=== PATIENT | female | born 1970 | race Caucasian/White ===

== ENCOUNTER 2017-03-04 06:48 | Day surgery (SDC) | payer BC ==
[~2017-03-04 06:48] MED LIST: Buffered Lidocaine 0.9% SYRIN* 5 ML/SYR SYRINGE INTRADERM ONE; Dexamethasone IV* 4 MG/ML 1 ML (4 MG) IV SLOW PU ONE; Famotidine IV* 10 MG/ML 2 ML (20 mg) IV ONE
[2017-03-04] MEDS ORDERED: Buffered Lidocaine 0.9% SYRIN* 5 ML/SYR SYRINGE ONE (06:59)
[2017-03-04] MEDS ORDERED: Famotidine IV* 10 MG/ML 2 ML (20 mg) ONE (06:59)
[2017-03-04] MEDS ORDERED: Dexamethasone IV* 4 MG/ML 1 ML (4 MG) ONE (06:59)
[2017-03-04] MEDS ORDERED: ceFAZolin 2 GM PREMIX (*) 2 GM/50 ML BAG IVPB ONE (06:59)
[2017-03-04] MEDS ORDERED: Propofol* 10 MG/ML 20 ML BTL IV PUSH ONE (08:08)
[2017-03-04] MEDS ORDERED: Ketorolac INJ* 30 MG/ML 1 ML VIAL ONE (08:08)
[2017-03-04] MEDS ORDERED: fentaNYL* 50 MCG/ML 2 ML VIAL (100 MCG VIAL) ONE (08:08)
[2017-03-04] MEDS ORDERED: Ondansetron INJ* 2 MG/ML VIAL ONE (08:08)
[2017-03-04] MEDS ORDERED: Midazolam* 1 MG/ML 5 ML VIAL (5 MG) ONE (08:08)
[2017-03-04] MEDS ORDERED: Bupivacaine 0.25% SDV* 30 ML ONE (08:16)
[2017-03-04] MEDS ORDERED: Lidocaine 1% INJ* 10 MG/ML 30 ML SDV ONE (08:16)
[2017-03-04] MEDS ORDERED: Ondansetron INJ* 2 MG/ML VIAL IV PRN (08:21)
[2017-03-04] MEDS ORDERED: DiMENhydriNATE IV* 50 MG/ML VIAL IV PUSH PRN (08:21)
[2017-03-04] MEDS ORDERED: oxyCODONE/Acetamin 5/325 MG* TAB PO PRN (08:21)
[2017-03-04 09:42] VITALS: BP 126/85
--- NOTE | 2017-03-07 01:11 | OP ---
DATE OF OPERATION: 03/04/17 - [facility] DATE OF : 72 SURGEON: Rory Granado MD. FLIGHT TEST SUPERVISOR: NAGA Peters. A physician assistant research scientist was required for the length of the procedure for retraction and setup purposes. ANESTHESIOLOGIST: Dr. Harris. ANESTHESIA: General sedation, local anesthesia with 10 cc of a 1:1 ratio of lidocaine 0.25% with epinephrine and Marcaine without epinephrine 0.5%. PRE-OP DIAGNOSIS: Right carpal tunnel syndrome. POST-OP DIAGNOSIS: Right carpal tunnel syndrome. OPERATIVE PROCEDURE: Right open carpal tunnel release. ANTIBIOTICS: Ancef 2 g IV. IV FLUIDS: 850 cc of normal saline. TOURNIQUET TIME: 15 minutes at 250 mmHg. ESTIMATED BLOOD LOSS: Minimal. COMPLICATIONS: None. SPECIMENS: None. IMPLANTS: None. 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 The patient described numbness and tingling in multiple fingers but principally in the index and middle finger, right hand. She had had it for many years, although it has become less bothersome in the left hand. The patient experienced some numbness and tingling daily, although it has consistently for many years been the worst when she blow dries her hair in the morning. She also has had the symptoms at night. The patient responded insufficiently to nonoperative management including nighttime wrist bracing. The patient opted for surgical management. I discussed preoperatively risks and potential complications of procedure, including bleeding, infection, nerve or blood vessel injury, recurrence of symptoms. DESCRIPTION OF PROCEDURE: Preoperative written consent was obtained in preoperative holding. Operative extremity was marked in preoperative holding. The patient was taken back to the operating room and kept on the stretcher. Some general sedation was applied. A hand table was attached to the stretcher. A mini time-out was performed. I cleaned the patient's distal right forearm and wrist with alcohol swabs. I injected 10 cc of local anesthetic, 6 cc, 6 cm proximal to the flexor wrist skin crease between the FCR and palmaris. I then injected 2 cc into the carpal tunnel and 2 cc into the distal forearm fascia and the subcutaneous tissue overlying it. The right upper extremity was prepped with iodine. The right upper extremity was draped. Surgical time-out was performed. Tourniquet was elevated to 250 mmHg after an Esmarch had been applied. A skin incision approximately 2.5 cm, longitudinal, overlying the carpal tunnel was made. I dissected through the subcutaneous tissue with a deep knife and then spreading dissection using my Ragnell retractors. I dissected down to some longitudinal fascia, the distal most extent of the forearm fascia; this was divided. I next encountered the transverse carpal ligament. A self retractor was placed. Valentina or Ragnell retractors were placed distal and later proximal to aid in exposure. The transverse carpal ligament was incised with a deep blade. I cleared off the deepened superficial surface of that ligament more distally. I then released the ligament further distally using scissors. I then changed my position, spread proximally both deep and superficial to the transverse carpal ligament and using the scissors, cut more proximally. Using a freer, I confirmed a complete release of transverse carpal ligament into the brachial fascia. The transverse carpal ligament cut ends had retracted nicely. No motor branches of the median nerve were encountered. There was not a significant amount of fat distally, but I clearly had cut the transverse carpal ligament towards its distal end, using appropriate landmarks. Irrigation improved closure of the skin with horizontal mattress and simple stitches using nylon 4.0 suture. Xeroform, 4x4s, bulky dressing with sterile Webril followed by Coban. The tourniquet was next deflated. The patient was brought to the PACU. DISPOSITION: The patient was given wound care instructions. She will maintain this dressing for 3 days postoperative. She will take Percocet as needed for pain control. 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 The patient will follow up with me 10 to 14 days postoperatively for removal of stitches. [id number]/[facility] #: [id number] SJ
== END 2017-03-04 09:53 | disposition home or self-care (01) ==
LOC: OR 06:48
PROVIDERS: ATTEND Orthopaedic Surgery
DX: G56.01 Carpal tunnel syndrome, right upper limb (principal); I10 Essential (primary) hypertension; M77.12 Lateral epicondylitis, left elbow; M77.11 Lateral epicondylitis, right elbow; G43.909 Migraine, unspecified, not intractable, without status migrainosus; Z88.5 Allergy status to narcotic agent
CPT/HCPCS: 81025; J0690; J1100; J1885; J2250; J2405; J2704; J3010

== ENCOUNTER 2017-11-29 09:01 | Emergency (ER) | payer BC ==
--- OUTSIDE RECORDS SUMMARY | 2017-11-29 09:07 | XMS REPORT ---
:1970 External Reference #:[id number] Author Organization [facility] Address [address] [place] [address] [place] [address] Phone [phone] Care Team Providers Name Role Phone Jackeline Pedraza MD Primary Care Physician Unavailable Payers Type Date Identification Numbers Payment Provider Subscriber Commercial Policy Number: [id number] BS Facets Jackeline Monae PayID: [id number] [address] [address] [place] [address] Problems Date Description Provider Status Onset: 09/29/2017 Derangement of knee Rory Granado MD Active Onset: 09/29/2017 Sprain of medial collateral ligament Rory Granado MD Active of left knee, subs Family History Date Family Member(s) Problem(s) Comments General Diabetes General Heart Disease General Hypertension General Stroke General Cancer Social History Type Date Description Comments Lives With Work Status Currently Working Smoking Patient has never smoked Allergies, Adverse Reactions, Alerts Date Description Reaction Status Severity Comments 05/12/2016 Codeine active 05/12/2016 Hydrocodone active Medications Medication Date Status Form Strength Qnty SIG Indications Ordering Provider Montelukast / Active Tablets 10mg 1 by Unknown Sodium 0000 mouth every day Levocetirizine / Active Tablets 5mg 1 by Unknown Dihydrochloride 0000 mouth every day / Active Capsules 27-0.8-250 Unknown Multivitamin Plus 0000 mg Dha Verapamil HCL ER / Active Caps ER 100mg Take 1 Unknown 0000 24HR Capsule By Mouth Every Day Rizatriptan / Active Tablets 10mg Jones, Benzoate 0000 Dispers Ivonne A, N.P. Oxycodone-Acetami 03/04/ Hx Tablets 5-325mg 40tabs 1-2 tabs Rory lugo 2017 - by mouth F 05/14/ every Angelica Granado 4-6 MD hours as needed for pain Sumatriptan / Hx Tablets 100mg prn Unknown Succinate - 2017 Labetalol HCL / Hx Tablets 100mg take one Unknown 0000 - tablet 11/28/ by mouth 2017 twice a day Gabapentin / Hx Capsules 300mg Unknown - 2017 Medications Administered in Office Medication Date Status Form Strength Qnty SIG Indications Ordering Provider Depomedrol 40MG 09/29/ Administered Injection Caryl 2018 NAGA Daly Dexamethasone 09/29/ Administered Injection Rory Vail 2016 Luis Felipe Granado, 1 MG No Injection 09/01/ Administered Injection Rory Casey 2016 MD Vannesa Depomedrol 40MG 07/06/ Administered Injection Rory Casey 2016 MD Vannesa Vital Signs Date Vital Result Comment 11/29/2017 Height 63 inches 5'3" Weight 172.00 lb Heart Rate 81 /min Respiratory Rate 17 /min Pain Level 6 BMI (Body Mass Index) 30.5 kg/m2 09/29/2017 Heart Rate 87 /min BP Systolic 110 mmHg BP Diastolic 60 mmHg Respiratory Rate 16 /min Body Temperature 99.1 F Pain Level 4 04/14/2017 Respiratory Rate 20 /min Body Temperature 97.5 F Pain Level 0 03/21/2017 Height 63 inches 5'3" Weight 174.00 lb Respiratory Rate 14 /min Body Temperature 99.2 F Pain Level 0 BMI (Body Mass Index) 30.8 kg/m2 03/14/2017 Height 63 inches 5'3" Weight 174.00 lb Heart Rate 76 /min Respiratory Rate 14 /min Body Temperature 98.3 F Pain Level 0 BMI (Body Mass Index) 30.8 kg/m2 02/08/2017 Height 63 inches 5'3" Weight 174.00 lb BP Systolic 130 mmHg BP Diastolic 76 mmHg Respiratory Rate 14 /min Body Temperature 98.8 F Pain Level 3 BMI (Body Mass Index) 30.8 kg/m2 12/28/2016 Height 63 inches 5'3" Weight 174.00 lb BP Systolic 132 mmHg BP Diastolic 77 mmHg Respiratory Rate 15 /min Pain Level 3 BMI (Body Mass Index) 30.8 kg/m2 11/11/2016 Height 63 inches 5'3" Weight 170.00 lb Heart Rate 77 /min Respiratory Rate 15 /min Pain Level 2 BMI (Body Mass Index) 30.1 kg/m2 09/29/2016 Height 63 inches 5'3" Weight 170.00 lb Respiratory Rate 16 /min Body Temperature 98.2 F Pain Level 4 BMI (Body Mass Index) 30.1 kg/m2 09/01/2016 Height 63 inches 5'3" Weight 170.00 lb BP Systolic 126 mmHg BP Diastolic 83 mmHg Respiratory Rate 16 /min Pain Level 4 BMI (Body Mass Index) 30.1 kg/m2 07/06/2016 Height 63 inches 5'3" Weight 170.00 lb Heart Rate 100 /min BP Systolic 115 mmHg BP Diastolic 80 mmHg Respiratory Rate 21 /min Pain Level 0 BMI (Body Mass Index) 30.1 kg/m2 06/08/2016 Height 63 inches 5'3" Weight 170.00 lb Heart Rate 67 /min BP Systolic 130 mmHg BP Diastolic 85 mmHg Respiratory Rate 16 /min Pain Level 2 BMI (Body Mass Index) 30.1 kg/m2 05/12/2016 Height 63 inches 5'3" Weight 170.00 lb Pain Level 4 BMI (Body Mass Index) 30.1 kg/m2 Results Description No Information Procedures Date CPT Code Description Status 09/29/201734908 Inject/Drain Joint/Bursa Major W/O US Completed 09/29/201777043 Inject/Drain Joint/Bursa Major W/O US Completed 03/04/2017 77322 Carpal Tunnel Release Completed 03/04/2017 89589 Carpal Tunnel Release Completed 09/29/201669350 Injection Single Tendon Origin/Insertion Completed 09/01/201691291 Injection Single Tendon Origin/Insertion Completed 07/06/201696198 Inject/Drain Joint/Bursa Major W/O US Completed Encounters Type Date Location Provider CPT E/M Dx Office Visit 11/29/2017 [facility], 68695 S83.412D 8:30a Of [facility] SORIANO M17.12 M22.2x2 Office Visit 02/08/2017 3:15p [facility] 32291 G56.23 Ike SORIANO M77.11 G56.01 Office Visit 12/28/2016 2:00p [facility] 53765 M77.12 Ike SORIANO G56.23 G56.01 M77.11 Office Visit 11/11/2016 3:30p [facility], 16255 M77.12 Ike SORIANO G56.23 Office Visit 09/29/2016 3:30p [facility], 16788 M77.12 Ike SORIANO G56.23 R20.0 Office Visit 09/01/2016 3:30p [facility], 70113 M77.12 Ike SORIANO S83.412D M25.562 Office Visit 07/06/2016 3:00p [facility] Casey 23450 S83.412D Of Ike Granado MD M17.12 M77.12 Office Visit 06/08/2016 10:15a [facility] 46528 S83.412D Of Ike Granado MD Office Visit 05/12/2016 1:00p [facility] 16669 M25.562 Of Ike Granado MD Plan of Care Future Appointment(s):01/30/2018 1:00 pm - Rory Granado MD at [facility]11/29/2017 - Rory Granado, MDS83.412D Sprain of medial collateral ligament of left knee, subsM17.12 Unilateral primary osteoarthritis, left kneeM22.2x2 Patellofemoral disorders, left kneeNew Therapy: Physical TherapyFollow up:Follow up: 2 months
--- NOTE | 2017-11-29 09:51 | UC ---
Abdominal Pain Female HPI - HPI Summary HPI Summary: 47 yo female presents with RUQ pain radiating to her right mid back since this morning. She tells me that for the last 10 years she has had issues with her gallbladder and pain in this area. Has had two HIDA scans in the past which were both "borderline", but the surgeon at the time did not want to do surgery. Since that time, once or twice a month, she will have intermittent pain in this area - sometimes after eating, but sometimes not. Last night she admits to having potato chips. 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 This has persisted for the last 2 hours, prompting her arrival to . She came today because she said her pain has never lasted this long and she also felt nauseous. This morning she did not eat breakfast, but took her daily vitamins with a sip of water. Denies fever, chills, SOB, chest pain, vomiting, or diarrhea. - History of Current Complaint Chief Complaint: UCAbdominalPain Stated Complaint: SIDE AND BACK PAIN Hx Obtained From: Patient Hx Last Menstrual Period: 10/30/17 Onset/Duration: Sudden Onset Severity Initially: Severe Severity Currently: Severe Pain Intensity: 7 Pain Scale Used: 0-10 Numeric Location: Discrete At: RUQ Allergies/Adverse Reactions: Allergies Allergy/AdvReac Type Severity Reaction Status Date / Time acetaminophen [From Vicodin] Allergy Hives Verified 11/29/17 09:13 Adhesive Tape Allergy Rash Verified 10/03/17 13:42 codeine Allergy Hives Verified 11/29/17 09:14 hydrocodone [From Vicodin] Allergy Hives Verified 11/29/17 09:13 NSAIDS (Non-Steroidal Allergy Hives Verified 11/29/17 09:14 Anti-Inflamma PEANUTS AND ALMONDS Allergy Anaphylatic Uncoded 10/03/17 13:42 Shock Home Medications: Home Medications Rizatriptan Benzoate [Rizatriptan] 10 mg PO DAILY PRN 11/29/17 [History Confirmed 11/29/17] Verapamil HCl [Verapamil ER Pm] 100 mg PO DAILY 11/29/17 [History Confirmed ] PMH/Surg Hx/FS Hx/Imm Hx Cardiovascular History: Hypertension - Surgical History Surgical History: Yes Surgery Procedure, Year, and Place: LOWER BACK FUSION 1991. RIGHT KNEE SURGERY LATERAL RELEASE 2008. LEFT SHOULDER ROTATOR CUFF 2009. RECONSTRUCTIVE ACL SURGERY LEFT KNEE 2011. LEFT SHOULDER IMPINGEMENT REPAIR 2014. CARPAL TUNNEL RIGHT HAND 02/2017 - Family History Known Family History: Positive: None - Social History Occupation: Employed Full-time Lives: With Family Alcohol Use: Occasionally Alcohol Amount: 2-3 DRINKS A MONTH Substance Use Type: None Smoking Status (MU): Never Smoked Tobacco Have You Smoked in the Last Year: No Review of Systems Constitutional: Negative Skin: Negative Respiratory: Negative Cardiovascular: Negative Gastrointestinal: Abdominal Pain, Nausea Genitourinary: Negative Neurovascular: Negative Neurological: Negative Psychological: Negative All Other Systems Reviewed And Are Negative: Yes Physical Exam - Summary Physical Exam Summary: GENERAL: NAD. WDWN. No pain distress. SKIN: No rashes, sores, lesions, or open wounds. NECK: Supple. Nontender. No lymphadenopathy. CHEST: CTAB. No r/r/w. No accessory muscle use. Breathing comfortably and in no distress. CV: RRR. Without m/r/g. Pulses intact. Brisk cap refill. ABDOMEN: Moderate TTP RUQ. Graff sign weakly positive. Soft. No distention or guarding. No CVA tenderness. Bowel sounds present NEURO: Alert. CN II-XII grossly intact. PSYCH: Age appropriate behavior. Triage Information Reviewed: Yes Vital Signs: Initial Vital Signs Temp 98 F 11/29/17 09:10 Pulse 88 11/29/17 09:10 Resp 16 11/29/17 09:10 BP 155/107 11/29/17 09:10 Pulse Ox 99 11/29/17 09:10 Laboratory Tests 11/29/17 09:36 POC Urine Color Dark yellow POC Urine Clarity Slightly cloudy POC Urine pH 7.0 POC Ur Specif [place] 1.020 POC Urine Protein Trace A POC Ur Glucose (UA) Negative POC Urine Ketones Negative POC Urine Blood Negative POC Urine Nitrite Negative POC Urine Bilirubin Negative POC Urine Urobilinogen 0.2 POC U Leukocyte Esteras Negative Vital Signs Reviewed: Yes Abd Pain Female Course/Dx - Course Course Of Treatment: EKG NSR [address] changes and unchanged from EKG [address] Arreaga. US: IMPRESSION: NO ACUTE SONOGRAPHIC PATHOLOGY OF THE VISUALIZED PORTION OF THE ABDOMEN. I suspect her pain is related to her gallbladder, as she has had issue with this in the past and "borderline" HIDA scans - per pt. Therefore, I will refer her to general surgery for further evaluation and possible repeat HIDA scan. Her pain improved with time and nausea improved with Zofran in the clinical course - will be dc'd with an rx for this. Go to ED if symptoms persist or worsen. Pt agreeable with plan - Differential Dx/Diagnosis Provider Diagnoses: RUQ pain Discharge - Sign-Out/Discharge Documenting (check all that apply): Patient Departure - Discharge Plan Condition: Stable Disposition: HOME Prescriptions: Ondansetron ODT TAB* [Zofran 4 MG Odt TAB*] 4 mg PO Q8H PRN #12 tab.odt PRN Reason: Nausea Patient Education Materials: Biliary Colic (ED) Referrals: Jackeline Pedraza MD [Primary Care Provider] - Daniel Bowie MD [Medical Doctor] - As Soon As Possible Additional Instructions: If you develop a fever, shortness of breath, chest pain, new or worsening symptoms - please call your PCP or go to the ED. Your blood pressure was high at todays visit. Please see your primary provider within 4 weeks for recheck and re-evaluation. 1) Please schedule a follow visit with General Surgery for further evaluation - Billing Disposition and Condition Condition: STABLE Disposition: Home
[2017-11-29] MEDS ORDERED: Ondansetron ODT TAB* 4 MG PO ONE (11:44)
--- NOTE | 2017-11-29 11:57 | RAD ---
HISTORY: RUQ pain. Hx of gallbladder issues COMPARISONS: None TECHNIQUE: Multiple transverse and longitudinal ultrasound images were obtained of the right upper quadrant of the abdomen using grayscale and color Doppler imaging. FINDINGS: LIVER: There is a simple cyst of the right lobe of liver measuring 0.8 cm in size. There is normal hepatopedal flow of the portal vein on Doppler imaging. BILIARY TREE: There is no intrahepatic or extrahepatic biliary dilatation. The common duct measures 0.3 cm. GALLBLADDER: The gallbladder is well-visualized. There is no cholelithiasis, gallbladder wall thickening, pericholecystic fluid, or sonographic Graff sign. PANCREAS: The head of the pancreas is unremarkable. The tail of the pancreas is not well visualized secondary to overlying bowel gas. RIGHT KIDNEY: The right kidney is normal in shape, size, contour, and echogenicity. There is no hydronephrosis or nephrolithiasis. The right kidney measures 10.4 x 4.3 x 4.7 cm. AORTA AND IVC: The aorta and IVC are unremarkable. FLUID: There are no pleural effusions. There is no free fluid within the hepatorenal recess. OTHER FINDINGS: None. IMPRESSION: NO ACUTE SONOGRAPHIC PATHOLOGY OF THE VISUALIZED PORTION OF THE ABDOMEN.
[2017-11-29 12:12] VITALS: BP 134/86
== END 2017-11-29 12:50 | disposition home or self-care (01) ==
LOC: UCEAST 09:01
DX: R10.11 Right upper quadrant pain (principal); R11.0 Nausea; I10 Essential (primary) hypertension; Z88.6 Allergy status to analgesic agent; Z88.5 Allergy status to narcotic agent; Z91.010 Allergy to peanuts; Z91.048 Other nonmedicinal substance allergy status
CPT/HCPCS: 76705; 81003; 93005; 99212; A9270-GY; G0463

== ENCOUNTER 2018-02-22 07:30 | Emergency (ER) | payer BC ==
--- OUTSIDE RECORDS SUMMARY | 2018-02-22 07:35 | XMS REPORT ---
:1970 External Reference #:[id number] Author Organization [facility] Address [address] [place] [address] [place] [address] Phone [phone] Care Team Providers Name Role Phone Jackeline Pedraza MD Primary Care Physician Unavailable Payers Type Date Identification Numbers Payment Provider Subscriber Commercial Policy Number: [id number] BS Facets Jackeline Monae PayID: [id number] [address] [address] [place] [address] Problems Date Description Provider Status Onset: 09/29/2017 Derangement of knee Rory Granado MD Active Onset: 09/29/2017 Sprain of medial collateral ligament Rory Granado MD Active of left knee, subs Family History Date Family Member(s) Problem(s) Comments General Diabetes General Heart Disease General Hypertension General Stroke General Cancer Social History Type Date Description Comments Marital Status Single Occupation Currently Working 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 Work Status Currently Working ETOH Use Drinks Alcoholic Beverages Occasionally Smoking Patient has never smoked Recreational Drug Use Denies Drug Use Daily Caffeine Consumes on average 1 cup of regular coffee per day Exercise Type/Frequency Exercises regularly Allergies, Adverse Reactions, Alerts Date Description Reaction Status Severity Comments 05/12/2016 Codeine active 05/12/2016 Hydrocodone active 12/09/2017 Adhesive active rash Medications Medication Date Status Form Strength Qnty [...] Every Day Rizatriptan / Active Tablets 10mg 1 tab Jones, Benzoate 0000 Dispers daily as Ivonne A, needed N.P. Probiotic Daily / Active Capsules 1 by Unknown 0000 mouth every day Omeprazole / Active Capsules 20mg [address] mouth every day Oxycodone-Acetami 03/04/ Hx Tablets 5-325mg 40tabs 1-2 tabs Rory lugo 2017 - by mouth F 05/14/ every Angelica Granado 4-6 MD hours as needed for pain Sumatriptan / Hx Tablets 100mg prn Unknown Succinate - 2017 Labetalol HCL / Hx Tablets 100mg take one Unknown 0000 - tablet 11/28/ by mouth 2017 twice a day Gabapentin / Hx Capsules 300mg Unknown 0000 - 2017 Medications Administered in Office Medication Date Status Form Strength Qnty SIG Indications Ordering Provider Depomedrol 40MG 09/29/ Administered Injection Rory Casey 2017 MD Vannesa Dexamethasone 09/29/ Administered Injection Rory 2016 Luis Felipe Granado, 1 MG No Injection 09/01/ Administered Injection Rory 2016 MD Vannesa Depomedrol 40MG 07/06/ Administered Injection Rory 2016 MD Vannesa Vital Signs Date Vital Result Comment 01/30/2018 Height 63 inches 5'3" Heart Rate 80 /min BP Systolic 130 mmHg BP Diastolic 82 mmHg Body Temperature 98.5 F Pain Level 0 12/09/2017 Height 63 inches 5'3" Weight 172.00 lb Heart Rate 76 /min BP Systolic 134 mmHg BP Diastolic 82 mmHg Respiratory Rate 16 /min Body Temperature 98.6 F BMI (Body Mass Index) 30.5 kg/m2 11/29/2017 Height 63 inches 5'3" Weight 172.00 [...] Information Procedures Date CPT Code Description Status 09/29/201737179 Inject/Drain Joint/Bursa Major W/O US Completed 09/29/201728447 Inject/Drain Joint/Bursa Major W/O US Completed 03/04/2017 27066 Carpal Tunnel Release Completed 03/04/2017 02556 Carpal Tunnel Release Completed 09/29/2016 Injection Single Tendon Origin/Insertion Completed 09/01/2016 Injection Single Tendon Origin/Insertion Completed 07/06/2016 Inject/Drain Joint/Bursa Major W/O US Completed 01/06/2015 Colonoscopy Completed Encounters Type Date Location Provider CPT E/M Dx Office Visit 12/09/2017 [facility], 49570 R10.11 1:00p Yue SORIANO Office Visit 11/29/2017 [facility] 67438 M17.12 8:30a Ike SORIANO M22.2x2 Office Visit 09/29/2017 8:15a [facility] Casey 50236 S83.412D Of [facility] Granado MD M17.12 Office Visit 02/08/2017 3:15p [facility] 90896 G56.23 Ike SORIANO M77.11 G56.01 Office Visit 12/28/2016 2:00p [facility] 88552 M77.12 Ike SORIANO G56.23 G56.01 M77.11 Office Visit 11/11/2016 3:30p [facility] 98531 M77.12 Ike SORIANO G56.23 Office Visit 09/29/2016 3:30p [facility] 05409 M77.12 Ike SORIANO G56.23 R20.0 Office Visit 09/01/2016 3:30p [facility] 15422 M77.12 Ike SORIANO S83.412D M25.562 Office Visit 07/06/2016 3:00p [facility] Casey 44535 S83.412D Of [facility] Granado MD M17.12 M77.12 Office Visit 06/08/2016 10:15a [facility] Casey 41890 S83.412D Of Ike Granado MD Office Visit 05/12/2016 1:00p [facility] 21118 M25.562 Of Ike Granado MD Plan of Care Future Appointment(s):03/14/2018 11:15 am [facility] Rory Granado, MDM22.2x2 Patellofemoral disorders, left kneeNew Therapy:Physical TherapyFollow up:Follow up: 6 meqbvI28.12 Unilateral primary osteoarthritis, left knee
[2018-02-22] MEDS ORDERED: Nitroglycerin TAB 0.4 MG* 0.4 MG TAB SL ONE (07:47)
[2018-02-22] MEDS ORDERED: Aspirin 81 mg CHEW TAB* 81 MG TAB.CHEW PO ONE (07:47)
[2018-02-22 07:50] VITALS: BP 170/101
--- NOTE | 2018-02-22 07:57 | UC ---
Cardiac HPI - HPI Summary HPI Summary: Onset yesterday of left sided chest pain. Described as a constant dull ache with occasional sharp pains. Today it has started to radiate through to her posterior shoulder. Sometimes the pain makes her catch her breath but she otherwise denies shortness of breath. No nausea. No sweats. Has a strong family history of heart disease. - History of Current Complaint Chief Complaint: UCChestPain Stated Complaint: CHEST PAIN Time Seen by Provider: 02/22/18 07:42 Hx Obtained From: Patient Hx Last Menstrual Period: 02/03/18 Onset/Duration: Gradual Onset, Lasting Days - 1 DAY, Still Present Timing: Constant Initial Severity: Moderate Current Severity: Moderate Pain Intensity: 4 Chest Pain Location: Left Anterior Character: Dull/Aching Aggravating Factor(s): Nothing Alleviating Factor(s): Nothing Associated Signs & Symptoms: Positive: Chest Pain, Anxiety, Back Pain - Allergy/Home Medications Allergies/Adverse Reactions: Allergies Allergy/AdvReac Type Severity Reaction Status Date / Time acetaminophen [From Vicodin] Allergy Hives Verified 02/22/18 07:51 Adhesive Tape Allergy Rash Verified 02/22/18 07:51 codeine Allergy Hives Verified 02/22/18 07:51 hydrocodone [From Vicodin] Allergy Hives Verified 02/22/18 07:51 NSAIDS (Non-Steroidal Allergy Hives Verified 02/22/18 07:51 Anti-Inflamma PEANUTS AND ALMONDS Allergy Anaphylatic Uncoded 02/22/18 07:51 Shock Home Medications: Home Medications Omeprazole 20 mg PO 02/22/18 [History] PMH/Surg Hx/FS Hx/Imm Hx Cardiovascular History: Hypertension GI/ History: Gastroesophageal Reflux Neurological History: Migraine - Surgical History Surgical History: Yes Surgery Procedure, Year, and Place: LOWER BACK FUSION 1991. RIGHT KNEE SURGERY LATERAL RELEASE 2008. LEFT SHOULDER ROTATOR CUFF 2009. RECONSTRUCTIVE ACL SURGERY LEFT KNEE 2011. LEFT SHOULDER IMPINGEMENT REPAIR 2014. CARPAL TUNNEL RIGHT HAND 02/2017 - Family History Known Family History: Positive: Cardiac Disease, Hypertension - Social History Alcohol Use: Occasionally Alcohol Amount: 2-3 DRINKS A MONTH Substance Use Type: None Smoking Status (MU): Never Smoked Tobacco Have You Smoked in the Last Year: No Review of Systems Constitutional: Negative Respiratory: Negative Cardiovascular: Chest Pain Gastrointestinal: Negative Psychological: Anxious All Other Systems Reviewed And Are Negative: Yes Physical Exam Triage Information Reviewed: Yes Appearance: Well-Appearing - BUT ANXIOUS, No Pain Distress, Well-Nourished Vital Signs: Initial Vital Signs Temp 98.0 F 02/22/18 07:47 Pulse 89 02/22/18 07:47 Resp 18 02/22/18 07:47 BP 170/101 02/22/18 07:47 Pulse Ox 96 02/22/18 07:47 Vital Signs Reviewed: Yes Eyes: Positive: Conjunctiva Clear ENT: Positive: Hearing grossly normal Neck: Positive: Supple Respiratory Exam: Normal Cardiovascular Exam: Normal Abdomen Description: Positive: Nontender, Soft Musculoskeletal: Positive: No Edema Neurological: Positive: Alert Psychological: Positive: Normal Response To Family, Age Appropriate Behavior Skin: Negative: rashes Diagnostics - EKG Cardiac Rate: NL - 75 BPM Cardiac Rhythm: Sinus: Normal Ectopy: None Summary of EKG Findings: T WAVE INVERSION III, AVF - Assessment/Plan Course Of Treatment: PT GIVEN 0.4MG NTG, ASA 81MG X4. TO [facility] BY AMBULANCE - Clinical Impression Provider Diagnoses: CHEST PAIN - Physician Notifications Discussed Patient Care With: Kristine Chaudhry - TO [facility] BY AMBULANCE Time Discussed With Above Provider: 07:50 Instructed by Provider To: MD Will See In ED Discharge - Sign-Out/Discharge Documenting (check all that apply): Patient Departure All imaging exams completed and their final reports reviewed: No Studies - Discharge Plan Condition: Stable Disposition: TRANS HIGHER LVL OF CARE FAC Referrals: Jackeline Pedraza MD [Primary Care Provider] - - Billing Disposition and Condition Condition: STABLE Disposition: Trans Higher Lvl of Care Fac
== END 2018-02-22 08:07 | disposition short-term general hospital (02) ==
LOC: UCEAST 07:30
DX: R07.89 Other chest pain (principal); F41.9 Anxiety disorder, unspecified; K21.9 Gastro-esophageal reflux disease without esophagitis; Z88.6 Allergy status to analgesic agent; Z88.5 Allergy status to narcotic agent; Z91.010 Allergy to peanuts; Z91.048 Other nonmedicinal substance allergy status; Z82.49 Family history of ischemic heart disease and other diseases of the circulatory system
CPT/HCPCS: 93005; 99213; A9270-GY; G0463

== ENCOUNTER 2018-02-22 08:25 | Observation (INO) | payer BC ==
--- NOTE | 2018-02-22 08:56 | ED ---
HPI Chest Pain - HPI Summary HPI Summary: Patient is a 47 y/o F received by ambulance from [facility] w/ c/o chest pain. Pain onset last morning at around 1030. Pain is described as constant and dull. Chest pain is at left upper breast and she notes pain radiates to left shoulder. Back pain is reported as well. She reports intermittent episodes of sharp pain at chest and back. Patient reports similar Hx of episodes, patient has had cardiac stress test. She does note that she was lifting 25-30 lbs logs three days ago. In the room, she states chest pain has resolved but notes left shoulder pain is still present. N/V/D, SOB and dizziness are denied. PMHx of HTN and FMHx of OR in 40s. Patient denies fever, chills, CHOUDHURY, ear pain, sore throat, blurred vision, double vision, neck pain, SOB, ABD pain, dysuria, hematuria, blood in the stool, constipation, edema, bruising, rashes, anxiety and depression. On triage, pain is rated 5/10, nothing is noted to aggravate/alleviate Sx, and it is noted patient received 1 nitro and 324 mg ASA at [facility]. Home medications and allergies are reviewed. - History of Current Complaint Chief Complaint: EDChestPainROMI Hx Obtained From: Patient Hx Last Menstrual Period: 02/03/18 Onset/Duration: Started Days Ago - last night, Still Present Timing: Constant Current Severity: Moderate - 5/10 Pain Intensity: 5 Pain Scale Used: 0-10 Numeric - 5/10 Chest Pain Location: Left Anterior Chest Pain Radiates: Yes Chest Pain Radiates To:: Shoulder - left Character: Dull/Aching, Sharp/Stabbing - intermittent, Tightness Aggravating Factor(s): Nothing Alleviating Factor(s): Nothing Associated Signs and Symptoms: Positive: Chest Pain, Back Pain - lower, Other: - POSITIVE: left shoulder pain NEGATIVE: dizziness, fever, chills, CHOUDHURY, ear pain , sore throat, blurred vision, double vision, neck pain, SOB, ABD pain, dysuria , hematuria, blood in the stool, constipation, edema, bruising, rashes, anxiety and depression. Negative: Dizziness, Shortness of Breath, Nausea, Vomiting - Allergy/Home Medications Allergies/Adverse Reactions: Allergies Allergy/AdvReac Type Severity Reaction Status Date / Time Adhesive Tape Allergy Rash Verified 02/22/18 07:51 codeine Allergy Hives Verified 02/22/18 07:51 hydrocodone [From Vicodin] Allergy Hives Verified 02/22/18 07:51 NSAIDS (Non-Steroidal Allergy Hives Verified 02/22/18 07:51 Anti-Inflamma PEANUTS AND ALMONDS Allergy Anaphylatic Uncoded 02/22/18 07:51 Shock PMH/Surg Hx/FS Hx/Imm Hx Endocrine/Hematology History: Denies: Hx Diabetes Cardiovascular History: Reports: Hx Hypertension - ON MEDICATION Denies: Hx Pacemaker/ICD GI History: Reports: Hx Hiatal Hernia, Hx Ulcer - GASTRIC History: Denies: Hx Renal Disease Musculoskeletal History: Reports: Hx Arthritis Sensory History: Reports: Hx Contacts or Glasses - GLASSES Denies: Hx Hearing Aid Opthamlomology History: Reports: Hx Contacts or Glasses - GLASSES Neurological History: Reports: Hx Headaches - MIGRAINES Psychiatric History: Denies: Hx Panic Disorder - Surgical History Surgery Procedure, Year, and Place: LOWER BACK FUSION 1991. RIGHT KNEE SURGERY LATERAL RELEASE 2008. LEFT SHOULDER ROTATOR CUFF 2009. RECONSTRUCTIVE ACL SURGERY LEFT KNEE 2011. LEFT SHOULDER IMPINGEMENT REPAIR 2014. CARPAL TUNNEL RIGHT HAND 02/2017 Hx Anesthesia Reactions: No Infectious Disease History: No Infectious Disease History: Denies: Traveled Outside the [place] in Last 30 Days - Family History Known Family History: Positive: Cardiac Disease - FMHx of OR in 40s , Hypertension - Social History Alcohol Use: Occasionally Alcohol Amount: 2-3 DRINKS A MONTH Substance Use Type: Reports: None Smoking Status (MU): Never Smoked Tobacco Have You Smoked in the Last Year: No Review of Systems Negative: Fever, Chills Positive: Other - NEGATIVE: double vision . Negative: Blurred Vision Negative: Sore Throat, Ear Ache Positive: Chest Pain Negative: Shortness Of Breath Negative: Abdominal Pain, Vomiting, Diarrhea, Nausea Positive: other - NEGATIVE: stool in blood, constipation . Negative: dysuria, hematuria Positive: Other - POSITIVE: left shoulder and back pain NEGATIVE: neck pain . Negative: Edema Negative: Rash, Bruising Neurological: Other - NEGATIVE: dizziness Negative: Headache Negative: Anxious, Depressed All Other Systems Reviewed And Are Negative: No Physical Exam - Summary Physical Exam Summary: Appearance: Alert, conversive, nontoxic appearing Skin: Warm, dry, no mottling, no rashes, no contusions HEENT: EOMI, PERRL, moist mucous membranes Neck: No masses on the neck, supple Respiratory: Clear to auscultation, breath sounds present, no rales, no rhonchi , no wheezes Cardiovascular: RRR, pulses are symmetrical in both lower and upper extremities Abdomen: Soft, non-tender Bowel Sounds: Present Musculoskeletal: No CVA tenderness, no obvious deformity, moving all extremities in a grossly normal manner Neurological: A&Ox3, CN II-XII Intact, moving all extremities symmetrically Psychiatric: Normal affect and mood Triage Information Reviewed: Yes Vital Signs On Initial Exam: Initial Vitals Temp Pulse Resp BP Pulse Ox 98 F 72 12 163/104 98 02/22/18 08:26 02/22/18 08:26 02/22/18 08:26 02/22/18 08:26 02/22/18 08:26 Vital Signs Reviewed: Yes Diagnostics - Vital Signs Vital Signs Temp Pulse Resp BP Pulse Ox 02/22/18 08:26 98 F 72 12 163/104 98 - Laboratory Result Diagrams: 02/23/18 06:04 02/23/18 06:04 Lab Statement: Any lab studies that have been ordered have been reviewed, and results considered in the medical decision making process. - Radiology CXR Radiology Interpretation Completed By: Radiologist Summary of Radiographic Findings: IMPRESSION: No radiographically apparent acute cardiopulmonary abnormality on this single. view portable chest x-ray. This report was reviewed by ED physician. Re-Evaluation - Re-Evaluation First Eval Re-Evaluation Time: 10:10 Comment: Discussed admission with patient, she is agreeable. Chest Pain Course/Dx - Course Course Of Treatment: Patient is a 47 y/o F received by ambulance from [facility] w/ c/ o chest pain. Pain onset last morning at around 1030. Pain is described as constant and dull. Chest pain is at left upper breast and she notes pain radiates to left shoulder. Back pain is reported as well. She reports intermittent episodes of sharp pain at chest and back. Patient reports similar Hx of episodes, patient has had cardiac stress test. She does note that she was lifting 25-30 lbs logs three days ago. In the room, she states chest pain has resolved but notes left shoulder pain is still present. N/V/D, SOB and dizziness are denied. PMHx of HTN and FMHx of OR in 40s. Patient denies fever, chills, CHOUDHURY, ear pain, sore throat, blurred vision, double vision, neck pain, SOB , ABD pain, dysuria, hematuria, blood in the stool, constipation, edema, bruising, rashes, anxiety and depression. Physical exam was unremarkable. Labs showed D-dimer < 200, glucose 115, calcium 8.4, AST 12, TSH 1.49, trop 0. CXR IMPRESSION: No radiographically apparent acute cardiopulmonary abnormality on this single. view portable chest x-ray. EKG from [facility] is noted to have non- specific ST-T changes. Patient's case was discussed with Dr. Gonsales at 1016. Dr. Gonsaels accepts patient for admission. Patient agreeable with admission. Dx of chest pain. - Diagnoses Provider Diagnoses: Chest pain - Provider Notifications Discussed Care Of Patient With: Maru Gonsales Time Discussed With Above Provider: 10:16 Instructed by Provider To: Other - Patient's case was discussed with Dr. Gonsales at 1016. Dr. Gonsales accepts patient for admission. Discharge - Sign-Out/Discharge Documenting (check all that apply): Patient Departure - admit - Discharge Plan Condition: Good Disposition: ADMITTED TO [facility] - Billing Disposition and Condition Condition: GOOD Disposition: Admitted to [facility] - Attestation Statements Document Initiated by Robynibkely: Yes Documenting Scribe: Robin Field Provider For Whom Dereke is Documenting (Include Credential): Kristine Chaudhry MD Scribe Attestation: Robin Erickson , scribed for Kristine Chaudhry MD on 02/23/18 at 1002. Scribe Documentation Reviewed: Yes Provider Attestation: The documentation as recorded by the scribeRobin accurately reflects the service I personally performed and the decisions made by me, Kristine Chaudhry MD
[2018-02-22 09:07] LABS: ABS Basophils 0 10^3/ul (0-0.2); ABS Eosinophils 0.1 10^3/ul (0-0.6); ABS Lymphocytes 1.9 10^3/ul (1.0-4.8); ABS Monocytes 0.5 10^3/ul (0-0.8); ABS Neutrophils 3.8 10^3/ul (1.5-7.7); ABS Nucleated RBC 0 10^3/ul; Eosinophil % 1.5 % (0-6); Hematocrit 41 % (35-47); Hemoglobin 13.9 g/dl (12.0-16.0); Lymphocyte % 29.8 % (25-47); Mean Corpuscular HGB Conc 34 g/dl (31-36); Mean Corpuscular Hemoglobin 31 pg (27-31); Mean Corpuscular Volume 91 fL (80-97); Mean Platelet Volume 9.6 fL (7.4-10.4); Nucleated Red Blood Cells % 0; Platelet Count 243 10^3/ul (150-450); Red Blood Count 4.47 10^6/ul (4.00-5.40); Red Cell Distribution Width 14 % (10.5-15); White Blood Count 6.4 10^3/ul (3.5-10.8)
[2018-02-22 09:26] LABS: EGFR Non-African American 76.1 (>60)
[2018-02-22] MEDS ORDERED: Acetaminophen TAB* 325 MG PO PRN (11:14)
[2018-02-22] MEDS ORDERED: Ondansetron INJ* 2 MG/ML VIAL IV PRN (11:14)
[2018-02-22] MEDS ORDERED: hydrALAZINE IV* 20 MG/ML VIAL IV SLOW PU PRN (11:21)
[2018-02-22] MEDS: Aspirin 81 mg CHEW TAB* 81 MG TAB.CHEW PO SCH (12:43)
--- NOTE | 2018-02-22 13:43 | HP ---
CC: Dr. Jackeline Pedraza * HISTORY AND PHYSICAL: DATE OF ADMISSION: 02/22/18 PRIMARY CARE PROVIDER: Jackeline Pedraza MD. ATTENDING PHYSICIAN WHILE IN THE HOSPITAL: Maru Gonsales DO * (report dictated by Mu Mejia NP). CHIEF COMPLAINT: Chest pain. HISTORY OF PRESENT ILLNESS: Ms. Monae is a 47-year-old female patient. She has a history of peptic ulcer disease, borderline hyperlipidemia, hypertension, and a history of migraines. She is coming into the ED today stating that yesterday she noted she was having discomfort in her chest, in the left side that was going into her back, described as occasionally having a sharp stabbing pain, worse whenever she tried to reach for something. She states that the pain had been constant since 10 o'clock yesterday. She went to the bed and she was noticing it even at bed and at rest, she was having discomfort. She states that there was no association with food. There was no associated shortness of breath, nausea, diaphoresis and she states there was no association with position change with the exception of moving her arm. She states that she was concerned because occasionally she would just be getting more sharp pain and then today the characteristic of the pain changed and then became more of tightness and a pressure. She went to urgent care and she was referred here. She does elicit the fact that over the weekend, she was clearing brush, cutting branches, hauling different yard waste out of her yard and exerting herself, but she states that when she was doing this, she was not having any chest pain. She denied having any headache or visual disturbances. She denied having any recent trips or travel. No recent surgeries. No calf pain or leg pain and she denied having any recent URI symptoms, fevers. No recent illnesses. She was just concerned because of the chest discomfort and no recent change in medications. She came into the ED. It was noted that she did have some EKG changes, particularly T wave inversions were noted in III, aVF along with V1 and they was flattening in V2 and V3. Because of these changes, we were asked to evaluate for admission. PAST MEDICAL HISTORY: Significant for: 1. Migraines. 2. Hypertension. 3. Hyperlipidemia. 4. Peptic ulcer disease. PAST SURGICAL HISTORY: 1. She has had a lumbar fusion. 2. Knee arthroscopy. 3. Shoulder arthroscopy. 4. Wrist surgery. MEDICATIONS: Home meds according to the list that she provided us includes: 1. Rizatriptan 10 mg p.o. daily as needed. 2. Omeprazole 20 mg daily. 3. Levocetirizine 5 mg p.o. at bedtime. 4. Verapamil 100 mg p.o. at bedtime. 5. Singulair 10 mg p.o. at bedtime. ALLERGIES TO MEDICATIONS: Include CODEINE, ADHESIVE TAPE, HYDROCODONE, and NSAIDS. FAMILY HISTORY: Her mother had a stroke in her 60s. She also has a history of diabetes. Father had an NV at 45 and AAA. SOCIAL HISTORY: She does not smoke. She does not drink. Surrogate decision maker is her . REVIEW OF SYSTEMS: There is no documented fever. She denied having any significant weight change. There is no double vision. She denies having any ear discharge. There was no rhinorrhea. There is no sore throat. No thyroid enlargement. No shortness of breath. No orthopnea. There is chest pain from HPI. There was no nausea, no vomiting. No dysuria, no frequency. No seizure, no loss of consciousness. No pruritus and no skin ulcerations. Review of 14 systems completed, all others negative. PHYSICAL EXAMINATION GENERAL: At this time, Ms. Monae is a 47-year-old female patient. She is sitting in the ED stretcher. She does not appear to be in any acute distress. VITAL SIGNS: Blood pressure 177/109, pulse 86, respirations 18, O2 sat 96%, temperature 98. HEENT: Head: Atraumatic and normocephalic. Eyes: EOMs are intact. Sclerae anicteric and not pale. Throat: Oral mucosa appears to be moist. No oropharyngeal erythema. NECK: Supple. LUNGS: Clear to auscultation bilaterally. No wheezes, rales, or rhonchi. HEART: Sounds S1, S2. She had a regular rate and rhythm. No murmurs, rubs, or gallops. ABDOMEN: Soft. It was flat, nontender. Bowel sounds were present. EXTREMITIES: Pulses were 2+ throughout. She is able to move all 4 extremities with 5/5 strength. NEUROLOGICAL: The patient is awake. She is alert. She is oriented x3. Her tongue is midline. Her side laster tack were equal. She had no gross focal deficits. SKIN: Intact. LABORATORY DATA/DIAGNOSTIC STUDIES: Labs today are revealing a WBC of 6.4, RBC of 4.47, hemoglobin 13.9, hematocrit of 41, and a platelet count of 243. The D- dimer was less than 200. The sodium was 138, potassium is 3.8, chloride 105, bicarb 27, BUN 13, creatinine of 0.81, glucose 115. Calcium 8.4. Mag 2.0. Total bili 0.5, AST 12, ALT 11, alk phos 60. CK 51. Troponin 0. TSH was reported at 1.49. She had a chest x-ray obtained today, impression: No radiographic acute cardiopulmonary abnormality on the single view portable chest. There was an EKG obtained today, which shows a normal sinus rhythm with a normal axis with a rate of 75. She had inverted T waves noted in lead III, aVF, V1 and flattening in V2 and V3. Note that in her previous EKG, she was inverted in III and aVF previously along with V1, but in V2 and V3 was upright. Old medical records were reviewed. ASSESSMENT AND PLAN: Ms. Monae is a 47-year-old female patient coming into the ED today with complaints of chest pain. We were asked to evaluate for admission. She will be admitted under observation status for: 1. Chest pain. Again, the pain at this point I think is musculoskeletal in relation to the fact that she was exerting herself and using these muscles over the weekend. Pain is reproducible, it hurts when she moves her arm. It has been constant since 10 o'clock yesterday in the morning and it is reassuring the fact that her troponin has not bumped since then; however, she does have the risk factor of hypertension and it is noted in the family history. So, I will go ahead and cycle her troponins. I think she would benefit from a stress test determining if we should do nuclear or nonnuclear stress test at this point , but I will place her on telemetry. I will give her p.r.n. pain medications in the form of Tylenol for the discomfort and I have encouraged her for hydration. Her CPK was normal and we will continue to follow. 2. Hypertension, hypertensive urgency. Blood pressure down here was 177/109. She is on a low dose of verapamil. I am going to increase that to the 180. I did not want to go up to 240 because of her heart rate. When she is at rest, it is right around in the 60s. So, I did not want her to be bradycardic. So, I increased it to 180 and I would like get the blood pressure down. We may need to consider adding an KRISTY. I have ordered p.r.n. hydralazine and we will continue to follow. 3. Migraines. Continue with her current medical regimen. 4. Hyperlipidemia. I am checking her lipid panel in the morning. 5. Peptic ulcer disease. Continue her PPI therapy. 6. DVT prophylaxis. She is low risk. I have ordered SCDs. 7. Code status. Full code. 8. Fluids, electrolytes, and nutrition. She can have a heart healthy diet and she will be n.p.o. after midnight for possible stress in the morning. TIME SPENT: On the admission was approximately 60 minutes, greater than half of the time spent [id number] with the patient obtaining my history and physical, other half of the time was spent going over the plan of care with the patient and implementing the plan of care. I did discuss the plan of care with my attending, Dr. Gonsales; she is in agreement. MU MEJIA, SHANIKA [id number]/[facility] #: [id number] S[place]
[2018-02-22] MEDS ORDERED: Cetirizine* 10 MG TAB PO SCH (21:00)
[2018-02-22] MEDS ORDERED: Verapamil SR CAP* 180 MG PO SCH (21:00)
[2018-02-22] MEDS ORDERED: Montelukast Sodium TAB* 10 MG PO SCH (21:00)
[2018-02-23 06:49] LABS: ABS Basophils 0.1 10^3/ul (0-0.2); ABS Eosinophils 0.2 10^3/ul (0-0.6); ABS Lymphocytes 2.8 10^3/ul (1.0-4.8); ABS Monocytes 0.6 10^3/ul (0-0.8); ABS Neutrophils 3.7 10^3/ul (1.5-7.7); ABS Nucleated RBC 0 10^3/ul; Eosinophil % 2.3 % (0-6); Hematocrit 37 % (35-47); Hemoglobin 12.6 g/dl (12.0-16.0); Lymphocyte % 37.9 % (25-47); Mean Corpuscular HGB Conc 34 g/dl (31-36); Mean Corpuscular Hemoglobin 31 pg (27-31); Mean Corpuscular Volume 92 fL (80-97); Mean Platelet Volume 9.9 fL (7.4-10.4); Nucleated Red Blood Cells % 0; Platelet Count 199 10^3/ul (150-450); Red Blood Count 4.04 10^6/ul (4.00-5.40); Red Cell Distribution Width 14 % (10.5-15); White Blood Count 7.4 10^3/ul (3.5-10.8)
[2018-02-23 06:56] LABS: INR 0.98 (0.77-1.02)
[2018-02-23 07:00] LABS: EGFR Non-African American 80.7 (>60)
[2018-02-23] MEDS: Aspirin 81 mg CHEW TAB* 81 MG TAB.CHEW PO SCH (07:56)
[2018-02-23] MEDS ORDERED: Calcium Gluconate INJ* 2 GM in NS 0.9% 100 ML* 100 ML IV ONE (08:47)
[2018-02-23] MEDS ORDERED: Omeprazole CAP* 20 MG PO SCH (09:00)
[2018-02-23 12:06] VITALS: BP 133/76
--- NOTE | 2018-02-24 07:52 | DS ---
CC: Dr. Gonsales; Dr. Kristine Chaudhry; Dr. Jackeline Pedraza DISCHARGE SUMMARY: DATE OF ADMISSION: DATE OF DISCHARGE: 02/23/18 DISCHARGE DIAGNOSES: 1. Chest pain, reproducible, likely musculoskeletal, noncardiac, resolved. 2. History of hypertension. 3. History of migraines. 4. History of hyperlipidemia. DISCHARGE MEDICATIONS: 1. Xyzal 5 mg p.o. q.h.s. 2. Montelukast 10 mg p.o. q.h.s. 3. Omeprazole 20 mg p.o. daily. 4. Rizatriptan benzoate 10 mg p.o. daily. 5. Verapamil 180 mg p.o. q.h.s. HISTORY OF PRESENT ILLNESS/HOSPITAL COURSE: The patient is a 47-year-old lady with history of migraines, hypertension, and peptic ulcer disease, who presented to [facility] on 02/22/18, complaini ng of chest pain. She mentions that the chest pain was sharp and stabbing in character and worse whe never she tried to reach for something. She stated that the pain had been constant since 10 o'clock yesterday, since it first occurred. She mentioned that she went to bed and she was even noticing the pain while at bed and at rest and denied any association of this pain with food, with no shortness o f breath, nausea, diaphoresis. It was noted on admission that her chest pain was reproducible and th ought to be due to musculoskeletal in nature. She does have some uncontrolled hypertension which was then subsequently addressed by increasing her q.h.s. verapamil which seems to have improved her bloo d pressure to acceptable limits and currently normotensive. She did have an exercise stress test don e, which was found to have no ischemic changes on stress by Emery protocol. She also had been ruled out for any form of venous thromboembolism given her D-dimer is less than 200 and was certainly ruled out for acute coronary syndrome with troponins having been negative x3. The patient had been advised to follow up and call her PCP within 3 days post discharge and that if h er symptoms resume or develop new ones or feel unwell for any reason, to call her PCP first. If her PCP cannot entertain her due to scheduling issues alone, she was advised to call [facility] if the issue is considered nonemergent. She was advised to call my office regarding any questions, c oncerns, or further clarifications regarding her discharge plans and her prescriptions and to take he r medications as prescribed. REVIEW OF SYSTEMS: On current review of systems, the patient denied any recent headaches, any curren t headaches, dizziness, fevers, chills, nausea, vomiting, chest pain, shortness of breath, increased cough and/or sputum production, abdominal pain, diarrhea, constipation, pain and/or increased frequen cy in urination, myalgias, arthralgias, throat pain, or new skin lesions. The rest of the 14-point r eview of systems is otherwise unremarkable. PHYSICAL EXAMINATION: Reveals her most recent vital signs of records was temperature of 98.2 degrees Fahrenheit, 66 beats per minute heart rate, 16 per minute respiratory rate, saturating at 97% on seble m air. General Appearance: The patient is awake, alert, and oriented x3, not in acute distress. HE ENT: Normocephalic, atraumatic. PERRLA. Extraocular muscles intact. Negative for icterus. Moist o ral mucosa. Negative throat erythema. Neck is soft, supple, with no cervical lymphadenopathy. No J VD. Heart: S1, S2 within normal limits. Regular rate and rhythm. No murmurs, rubs, and gallops. C hest: Clear to auscultation bilaterally with good air entry. No wheezes, rales, or rhonchi. The pa tiemarco a no longer has any pain and when she pointed to the site of where the pain was, it was found to no longer be tender to palpation. Abdomen is soft, nondistended, nontender. Normoactive bowel sound s 4x quadrant. Extremities: No cyanosis, clubbing, or edema. Psychiatric: No active psychosis, de pression, suicidal or homicidal ideations. Skin is warm to touch. TIME SPENT: The total time spent evaluating the patient, reviewing pertinent data and appropriate do cumentation is 35 minutes. [id number]/[facility] #: [id number]
== END 2018-02-23 13:09 | disposition home or self-care (01) ==
LOC: ED 08:25 → MEDTELE 11:10
PROVIDERS: ADMIT Hospitalist; ATTEND Student in an Organized Health Care Education/Training Program
DX: R07.9 Chest pain, unspecified (principal); M54.5 Low back pain; M25.512 Pain in left shoulder; I10 Essential (primary) hypertension; E78.5 Hyperlipidemia, unspecified; Z86.69 Personal history of other diseases of the nervous system and sense organs
CPT/HCPCS: 36415; 71045; 80048; 80053; 80061; 82550; 83036; 83735; 84443; 84484; 85025; 85379; 85610; 93005; 93017; 96365; 96375; 99284; A9270-GY; G0378; J0610

== ENCOUNTER 2018-08-04 09:10 | Day surgery (SDC) | payer BC ==
[~2018-08-04 09:10] MED LIST changes: -Buffered Lidocaine 0.9% SYRIN* 5 ML/SYR SYRINGE INTRADERM ONE; +Buffered Lidocaine 1% SYRIN* 1 ML/SYRINGE INTRADERM ONE; +Dexamethasone IV* 4 MG/ML 1 ML (4 MG) ONE; +Famotidine IV* 10 MG/ML 2 ML (20 mg) ONE; +Lactated Ringers 1000 ML Bag* 1,000 ML IV SCH; +ceFAZolin 2 GM in NS PREMIX(*) 2 GM/100 ML BAG IVPB ONE
[2018-08-04] MEDS ORDERED: EPINEPHRINE 1 MG/ML 1 ML VIAL ONE (13:21)
[2018-08-04] MEDS ORDERED: Propofol* 10 MG/ML 20 ML BTL ONE (13:31)
[2018-08-04] MEDS ORDERED: Atracurium* 10 MG/ML 10 ML VIAL ONE (13:31)
[2018-08-04] MEDS ORDERED: Midazolam* 1 MG/ML 5 ML VIAL (5 MG) ONE (13:31)
[2018-08-04] MEDS ORDERED: Ondansetron INJ* 2 MG/ML VIAL ONE (13:31)
[2018-08-04] MEDS ORDERED: fentaNYL* 50 MCG/ML 2 ML VIAL (100 MCG VIAL) ONE ×2 (13:31→14:48)
[2018-08-04] MEDS ORDERED: Lidocaine 2% PF * 5 ML VIAL ONE (13:32)
[2018-08-04] MEDS ORDERED: ROPIVACAINE 5 MG/ML 30 ML BTL (0.5%) ONE (13:37)
[2018-08-04] MEDS ORDERED: EPHEDrine (Pressors)* 50 MG/ML VIAL ONE (14:08)
[2018-08-04] MEDS ORDERED: Ondansetron INJ* 2 MG/ML VIAL IV PRN (14:36)
[2018-08-04] MEDS ORDERED: Naloxone* 0.4 MG/ML 1 ML VIAL IV PRN (14:36)
[2018-08-04] MEDS ORDERED: fentaNYL* 50 MCG/ML 2 ML VIAL (100 MCG VIAL) IV PRN (14:36)
[2018-08-04] MEDS ORDERED: DiMENhydriNATE IV* 50 MG/ML VIAL IV PUSH PRN (14:36)
[2018-08-04 17:32] VITALS: BP 136/98
--- NOTE | 2018-08-06 13:16 | OP ---
OPERATIVE REPORT: DATE OF OPERATION: 08/04/18 DATE OF : 72 SURGEON: Rory Granado MD CENTER MACHINE OPERATOR: NAGA Malagon A physician commercial real estate assistant was required for the length of the procedure for assistance with positioning, instrumentation, retraction, and closure. ANESTHESIOLOGIST: Dr. Harris. ANESTHESIA: General anesthesia, regional interscalene block anesthesia, local anesthesia with 10 cc of Marcaine 0.5% with epinephrine over the open incision for the biceps work. PRE-OP DIAGNOSES: 1. Left shoulder rotator cuff tendon tear, supraspinatus, likely articular- sided partial thickness. 2. Left shoulder subacromial impingement and bursitis. 3. Left shoulder acromioclavicular joint osteoarthritis. 4. Possible left shoulder posterior labrum tear. 5. Possible left shoulder proximal biceps tendinitis. 6. Prior shoulder surgeries at outside facilities including a single anchor rotator cuff repair of a partial thickness articular-sided supraspinatus tear in 2009 and then a subacromial decompression in 2014; at which point, a recurrence of that undersurface articular-sided tear had been noted. POST-OP DIAGNOSIS: OPERATIVE PROCEDURE: 1. Left shoulder arthroscopic rotator cuff repair with the placement of a REGENETEN biologic patch. 2. Left shoulder arthroscopic subacromial decompression. 3. Left shoulder arthroscopic distal clavicle resection. 4. Left shoulder open proximal biceps tenodesis, subpectoral. INDICATIONS: The patient is a 47-year-old woman, who developed left shoulder pain in April 2018 or rather a worsening of her pre-existing shoulder pain, who presented [facility]. She responded insufficiently to nonoperative management and wanted surgery. She did have a prior surgical history with the left shoulder. In 2009 in [place], she had had a single anchor rotator cuff repair of what was a partial-thickness under-sided supraspinatus tear. Then, in 2014, she had a subacromial decompression by a surgeon in [place], who noted that she had some type of partial-thickness tear that was not repaired. CT scan with intraarticular contrast obtained by [facility] in June demonstrated a likely partial thickness under-sided articular-sided supraspinatus tear. Possible posterior labrum tear. Some lateral acromial spur AC joint narrowing, difficult to determine status of biceps tendon. I discussed pros and cons and risks and potential complications of surgery. I discussed possible treatment of biceps tendon. I discussed the pros and cons of biceps release and biceps tenodesis. The patient wanted to go forward with surgery and she preferred biceps tenodesis to biceps release. I was prepared to do a variety of things for the rotator cuff including nothing, simple debridement, use of REGENETEN biologic patch, and suture anchors, and classic rotator cuff tendon repair. ANTIBIOTICS: Ancef 2 g IV. IV FLUIDS: 1200 cc crystalloid. [id number] TIME: 90 minutes. ARTHROSCOPIC FLUID UTILIZED: 9.5 bags each with 3 L for a total of 28.5 L. SPECIMEN: None. IMPLANTS: REGENETEN [employer] rotation medical biologic patch. Multiple tendon anchors for that and multiple bone anchors. Also, an Arthrex proximal biceps button. COMPLICATIONS: None. ESTIMATED BLOOD LOSS: Minimal. DESCRIPTION OF PROCEDURE: In preoperative holding, the patient signed a written consent. Operative extremity was marked in the preoperative holding. The patient underwent a regional interscalene nerve block in preoperative holding. The patient was brought back to the operating room and placed supine on the operating room table. Sedated and intubated. Placed in a lateral decubitus position. Beanbag hardened. Axillary roll placed, longitudinal traction 10 pounds. Appropriate forward flexion and abduction. Left shoulder prepped and draped. Surgical time-out performed. 30 cc of normal saline entered into the glenohumeral joint from posterior. Established posterior glenohumeral joint portal. I started my diagnostic arthroscopy. No significant posterior labrum tear. Articular cartilage was all intact; however, there were some unusual features. First, the patient had some low-grade grade 1 fraying in some spots of the articular cartilage and she had some bumps in several locations. The bumps in these locations showed relatively normal-appearing articular cartilage and so would not call them osteophytes, but they could represent a precursor to osteophytes. These were present about the superior humeral head close to the rotator cuff footprint. The patient had much tendinosis of the biceps, quite strong and so I decided that the biceps should be treated. I established an anterior glenohumeral joint portal under direct visualization. I brought an arthroscopic scissors and cut the biceps. I also debrided some rotator cuff interval tissue. I visualized the anterior most aspect of the supraspinatus where I expected to find some pathology. There were some visible sutures here. I examined it well. I made a second more medial posterior portal to try to improve my visualization, which it did. I visualized this location and there was a little bit of exposed footprint. I measured it with an arthroscopic probe to be 3 to 4 mm. There was some visible suture from a prior procedure. I brought my arthroscopic shaver and debrided tissue about that suture. Superficial or superior to this area, the cuff was otherwise intact. I debrided lightly and there was no high-grade partial-thickness tear in this location. Therefore, I thought a suture anchor repair was not required but that the REGENETEN patch repair would be worthwhile given the prior repair in this location, the partial- thickness tear, and the persistence of this tear and the persistence of her symptoms through the years. I next moved to the subacromial space. I entered it from anterior and posterior. I established lateral and then posterolateral portals. I used arthroscopic shaver to debride bursitic tissue. I next performed my subacromial decompression with an arthroscopic bur flattening out the undersurface of the acromion removing anterior and lateral spurs. I visualized the bursal side of the rotator cuff. I probed it with a switching stick and with an arthroscopic probe and there was no bursal-sided tear. This solidified my decision to use the REGENETEN patch rather than do a suture anchor repair. We opened the REGENETEN biologic patch. I made a superolateral portal for instrumentation. I placed the patch through the lateral portal. I then placed a multitude of the PLLA biologic zeb through the graft into the rotator cuff. I then placed 3 bone anchors through the lateral most aspect of the graft. I removed several of the PLLA zeb that had not fully seated. I placed the patch a little bit more lateral than I do sometimes since the disease seemed just at the insertion. I was confident with the stability of my graft through range of motion of the shoulder. I next moved to the AC joint. I debrided bursitic tissue with an arthroscopic VAPR cautery probe. I then removed 8 mm of the distal end of the clavicle with an arthroscopic bur. I removed fluid and instruments from subacromial space. Closed skin incisions with [id number] and 12 stitches using nylon 3-0 suture. Softened the beanbag and turned the patient to a nearly supine position and re- hardened the beanbag. Made a standard anteromedial upper arm longitudinal skin incision. Dissected down to bicipital groove. Placed retractors. Removed long head biceps tendon from wound. Placed 4 stitches with FiberLoop suture at the correct level. Loaded button, placed and flipped button into the humeral shaft. Tied the knot previous to free needle to pass a second tenodesis knot. Removed excess suture and biceps tendon. Irrigation. A closure of the subcutaneous tissue with buried simple stitches using Vicryl 3-0 suture. Closure of subcuticular layer with running stitches and Monocryl 4-0 suture. Steri-Strips, 4x4, and Tegaderm for that incision. It should be noted that I applied some local anesthesia around that open incision 10 cc of 0.5% Marcaine with epinephrine. I placed on the small arthroscopic incision site Xeroform, 4x4s, ABDs, foam tape. The patient was placed in a sling without abduction pillow. The patient was awakened, extubated, and brought to the PACU. DISPOSITION: The patient was discharged home with tramadol for a pain medication as she has had difficulties with hydrocodone and oxycodone in the past. She was written for a short course of Keflex to prevent infection. She will follow up 10 to 14 days postoperatively. She will do physical therapy with a protocol for a REGENETEN biologic patch repair. [id number]/[facility] #: [id number] [facility]
== END 2018-08-04 17:33 | disposition home or self-care (01) ==
LOC: OR 09:10
PROVIDERS: ATTEND Orthopaedic Surgery
DX: S46.112D Strain of muscle, fascia and tendon of long head of biceps, left arm, subsequent encounter (principal); S46.012D Strain of muscle(s) and tendon(s) of the rotator cuff of left shoulder, subsequent encounter; M25.512 Pain in left shoulder; G43.909 Migraine, unspecified, not intractable, without status migrainosus; R42 Dizziness and giddiness; I10 Essential (primary) hypertension; Z88.5 Allergy status to narcotic agent; Z91.048 Other nonmedicinal substance allergy status; X58.XXXD Exposure to other specified factors, subsequent encounter
CPT/HCPCS: 81025; C1713; C1776; J0690; J1100; J2250; J2405; J2704; J2795; J3010

== ENCOUNTER 2019-06-25 09:03 | Emergency (ER) | payer OTHER ==
--- OUTSIDE RECORDS SUMMARY | 2019-06-25 09:22 | XMS REPORT | Continuity of Care Document ---
:1970 External Reference #:[id number] Author Name Jackeline Pedraza M.D. Address [address] [place] [address] Care Team Providers Name Role Phone Jackeline Pedraza M.D. 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 Onset: 01/23/2016 Gastroesophageal reflux disease Jackeline Pedraza M.D. Onset: 01/23/2016 Migraine without aura, not refractory Jackeline Pedraza M.D. Onset: 01/23/2016 Allergic rhinitis Jackeline Pedraza M.D. Onset: 01/23/2016 Hyperlipidemia Jackeline Pedraza M.D. Onset: 03/29/2017 Impaired fasting glycaemia Jackeline Pedraza M.D. Onset: 03/20/2019 Obesity Jackeline Pedraza M.D. Onset: 05/04/2018 Social History Type Date Description Comments Sex Unknown Tobacco Use Start: Unknown Never Smoked Cigarettes ETOH Use Social Alcohol 2x a mo Tobacco Use Start: Unknown Patient has never smoked Smoking Status Reviewed: 10/31/18 Patient has never smoked Exercise Exercises regularly crossfit 2-3 weeks Type/Frequency Allergies, Adverse Reactions, Alerts Active Allergies Reaction Severity Comments Date Codeine hives/rash 01/23/2016 Vicodin/ES hives/rash 01/23/2016 Percocet hives/rash 01/23/2016 Medications Active Medications SIG Qnty Indications Ordering Date Provider Xyzal Allergy 24HR 1 tab by mouth 90tabs Jackeline Pedraza 06/19/2019 5mg at bedtime M.D. Tablets Cyclobenzaprine HCL 1/2-1 tablet 30tabs M54.2 Jackeline Pedraza 06/19/2019 5mg every night at M.D. Tablets bedtime as needed Losartan Potassium 1 by mouth every 90tabs I10 Jackeline Pedraza 03/20/2019 50mg day M.D. Tablets Atorvastatin Calcium 1 by mouth every 90tabs Debra 09/18/2018 10mg day Gerardo, Juan F-C Tablets Verapamil HCL ER 1 tab by mouth 90caps I10 [facility], 05/04/2018 120mg Caps every day M.D. ER 24HR Rizatriptan Benzoate take [address] [facility], 09/26/2017 10mg mouth at onset M.D. Tablets Dispers migraine can repeat 2 hours later 2 times mdd 3 Montelukast Sodium 1 by mouth every 90tabs [facility], 10mg day M.D. 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 Immunizations CPT Code Status Date Vaccine Lot # [id number] Given 06/21/2017 Tdap Tetanus, W Pertussis [id number] Vital Signs Date Vital Result Comment 06/19/2019 9:42am BP Systolic 122 mmHg BP Diastolic 74 mmHg Heart Rate 76 /min Body Temperature 97.9 F Respiratory Rate 16 /min Weight 179.00 lb 03/20/2019 9:06am BP Systolic 120 mmHg BP Diastolic 98 mmHg Heart Rate 78 /min Body Temperature 99.0 F Respiratory Rate 16 /min Weight 178.31 lb Results Test Acquired Date Facility Test Result H/L Range Note Laboratory test 03/20/2019 [facility] Hemoglobin A1c 5.6 % % 4.1- 5.7 finding (607)- - (Fma) Comprehensive 03/20/2019 [facility](a) Sodium 137 mEq/L 134-149 Metabolic Prof Potassium 3.9 mEq/L 3.6-5.5 Chloride 102 mEq/L 94-112 Carbon Dioxide 27 mEq/L 21-32 Glucose 111 mg/dL High 70-105 1 BUN 16 mg/dL 6-26 Creatinine 0.8 mg/dL 0.6-1.4 BUN/Creat Ratio 20.0 CALC 8.0-36.0 Calcium 8.9 mg/dL 8.6-10.2 Total Protein 6.8 g/dL 6.4-8.3 Albumin 4.2 g/dL 3.8-5.5 Globulin 2.6 g/dL 2.0-4.8 A/G Ratio 1.6 CALC 0.6-2.3 Alk. Phosphatase 55 U/L 30-110 Alt (SGPT) 13 U/L 7-35 Ast (Sgot) 12 U/L 5-34 Total Bilirubin 0.6 mg/dL 0.2-1.3 GFR Non- >60 ml/min/1.73m^ >=60 GFR >60 ml/min/1.73m^ >=60 Lipid Profile 03/20/2019 [facility]ma) Cholesterol 217 mg/dL High 120-200 Triglycerides 221 mg/dL High 30-200 HDL Cholesterol 48 mg/dL 30-85 LDL (Calculated) 125 CALC 0-129 VLDL Cholesterol 44 mg/dL 0-50 HDL Risk Factor 4.5 CALC High 0.0-4.4 1 consistent w/ previous results Procedures Date Code Description Status 04/19/2019 71035128 Mammogram Completed 07/08/2017 [id number] Mammogram Completed 06/03/2017 [id number] Mammogram Completed 04/18/2014 [id number] Colonoscopy Completed Medical Devices Description No Information Available Encounters Type Date Location Provider Dx Diagnosis Office Visit 03/20/2019 [facility] Office Jackeline Pedraza, I10 Essential ( primary) 9:00a M.D. hypertension E78.5 Hyperlipidemia, unspecified R73.01 Impaired fasting glucose Z12.31 Encntr screen mammogram for malignant neoplasm of breast N39.3 Stress incontinence (female) (male) K59.00 Constipation, unspecified Office Visit 02/06/2019 10:45a Main Office Gris Lino L23.89 Allergic contact SHANIKA Elliott dermatitis due to other agents Office Visit 02/01/2019 1:45p [place], K59.09 Other constipation Office REMOVABLE PROSTHODONTIST Assessments Date Code Description Provider 06/19/2019 I10 Essential (primary) hypertension Jackeline Pedraza M.D. 06/19/2019 E78.5 Hyperlipidemia, unspecified Jackeline Pedraza M.D. 06/19/2019 R73.01 Impaired fasting glucose Jackeline Pedraza M.D. 06/19/2019 M54.2 Cervicalgia Jackeline Pedraza M.D. 03/20/2019 I10 Essential (primary) hypertension Jackeline Pedraza M.D. 03/20/2019 E78.5 Hyperlipidemia, unspecified Jackeline Pedraza M.D. 03/20/2019 R73.01 Impaired fasting glucose Jackeline Pedraza M.D. 03/20/2019 Z12.31 Encounter for screening mammogram for Jackeline Pedraza M.D. malignant neoplasm of breast 03/20/2019 N39.3 Stress incontinence (female) (male) Jackeline Pedraza M.D. 03/20/2019 K59.00 Constipation, unspecified Jackeline Pedraza M.D. 02/06/2019 L23.89 Allergic contact dermatitis due to other Gris Elliott [employer] agents 02/01/2019 K59.09 Other constipation JEAN-PIERRE Perez Plan of Treatment Future Appointment(s):09/25/2019 10:20 am - Jackeline Pedraza M.D. at [facility] [id number]/19/2019 - Jackeline Pedraza M.D.I10 Essential (primary) hypertensionComments:The patient will continue to monitor blood pressure and let me know the blood pressure results if there are readings persistently above 140/90. Goal blood pressure is less than 130/80. Recommend low salt/cardiac diet such as the Mediterranean diet and routine exercise at least 30 minutes a day.E78.5 Hyperlipidemia, unspecifiedComments:Goal LDL is <130, HDL >40, Triglycerides <200R73.01 Impaired fasting glucoseComments:Sugar/glucose level was high. Consider meeting with a access lead to help with food choices to preventdiabetes. Foods to avoid/limit include simple carbohydrates, which are processed, such as sugar, pasta, white bread, flour, and cookies, pastries, sweetened beverages and alcohol. Low carbohydrate diet, low glycemic index diet or the Mediterranean diet can help you reduce sugar levels. Routine cardiovascular exercise of at least 30 minutes a day is also recommended. Recommend rechecking your fasting(no food for 8 hours prior to test) sugar level in 3-6 months with lifestyle changes in effect. A fasting blood sugar level from 100 to 125 mg/dL is considered prediabetes. If it's 126 mg/dL or higher on two separate tests, you have diabetes. A1c> 6.5 is also diagnostic of diabetes.M54.2 CervicalgiaNew Medication:Cyclobenzaprine HCL 5 mg - 1/2-1 tablet every night at bedtime as neededNew Xrays:Cervical Spine 3 Views Or Less , Ordered: 06/19/19Comments:naproxen ok for pain, Reviewed adverse side effects of medication. Advised to call the office if experiencing symptoms. Patient verbalized understanding. trial of muscle relaxant at nightAllComments: Medication Management Patient Understands medications she's taking? Yes No Are there Barriers to Adherence? Yes No Has the patient been asked about herbal supplements and therapies, and OTC meds? Yes No Functional Status Description No Information Available Mental Status Description No Information Available Referrals Description No Information Available
--- NOTE | 2019-06-25 09:32 | ED ---
Lower Extremity - HPI Summary HPI Summary: 48 year old F presenting to [facility] with a chief complaint of right leg pain and swelling since 5 days ago. The patient rates the pain 1/10 in severity. Symptoms aggravated by nothing. Symptoms alleviated by nothing. Patient reports that her swelling began in her ankle and radiated upwards to her knee. Patient denies any shortness of breath, chest pain, or other symptoms. She states that her physician has said that the patient may need to see a vascular physician. She has a history of multiple orthopedic surgeries. She admits to occasional alcohol use. Medication list reviewed. Allergy list reviewed. Home Medications Medication Instructions Recorded Confirmed Type LevoCETirizine TAB (NF) [Xyzal TAB 5 mg PO BEDTIME 02/22/17 06/25/19 History (NF)] Montelukast Sodium TAB* [Singulair 10 mg PO BEDTIME 02/22/17 06/25/19 History 10 MG TAB*] Rizatriptan Benzoate [Rizatriptan] 10 mg PO DAILY PRN 11/29/17 06/25/19 History Verapamil SR CAP* [Calan Sr CAP*] 120 mg PO BEDTIME 07/28/18 06/25/19 History Atorvastatin* [Lipitor*] 10 mg PO DAILY 06/25/19 06/25/19 History Cyclobenzaprine (NF) 2.5 mg PO DAILY 06/25/19 06/25/19 History [Cyclobenzaprine 5 MG (NF)] Losartan TAB* [Cozaar TAB*] 50 mg PO DAILY 06/25/19 06/25/19 History - History of Current Complaint Chief Complaint: EDExtremityLower Stated Complaint: RT LEG PAIN AND SWELLING PER PT Time Seen by Provider: 06/25/19 09:23 Hx Obtained From: Patient Hx Last Menstrual Period: 02/03/18 Mechanism Of Injury: Unknown Onset of Pain: Days Onset/Duration: Still Present Severity Currently: Mild Pain Intensity: 1 Pain Scale Used: 0-10 Numeric Timing: Constant Location: Is Discrete @ - Right leg Associated Signs And Symptoms: Positive: Swelling Aggravating Factor(s): Nothing Alleviating Factor(s): Nothing Able to Bear Weight: Yes - Allergies/Home Medications Allergies/Adverse Reactions: Allergies Allergy/AdvReac Type Severity Reaction Status Date / Time Adhesive Tape Allergy Rash Verified 06/25/19 09:16 codeine Allergy Hives Verified 06/25/19 09:16 hydrocodone [From Vicodin] Allergy Hives Verified 06/25/19 09:16 NSAIDS (Non-Steroidal Allergy Hives Verified 06/25/19 09:16 Anti-Inflamma oxycodone Allergy Hives/Diff. Verified 06/25/19 09:16 Breathing/I tching PEANUTS AND ALMONDS Allergy Anaphylatic Uncoded 06/25/19 09:16 Shock Home Medications: Home Medications LevoCETirizine TAB (NF) [Xyzal TAB (NF)] 5 mg PO BEDTIME 02/22/17 [History Confirmed 06/25/19] Montelukast Sodium TAB* [Singulair 10 MG TAB*] 10 mg PO BEDTIME 02/22/17 [ History Confirmed 06/25/19] Rizatriptan Benzoate [Rizatriptan] 10 mg PO DAILY PRN 11/29/17 [History Confirmed 06/25/19] Verapamil SR CAP* [Calan Sr CAP*] 120 mg PO BEDTIME 07/28/18 [History Confirmed 06/25/19] Atorvastatin* [Lipitor*] 10 mg PO DAILY 06/25/19 [History Confirmed 06/25/19] Cyclobenzaprine (NF) [Cyclobenzaprine 5 MG (NF)] 2.5 mg PO DAILY 06/25/19 [ History Confirmed 06/25/19] Losartan TAB* [Cozaar TAB*] 50 mg PO DAILY 06/25/19 [History Confirmed 06/25/19] PMH/Surg Hx/FS Hx/Imm Hx Endocrine/Hematology History: Denies: Hx Diabetes Cardiovascular History: Reports: Hx Angina, Hx Hypertension - ON MEDICATION Denies: Hx Coronary Artery Disease, Hx Hypercholesterolemia, Hx Myocardial Infarction, Hx Pacemaker/ICD, Hx Valvular Heart Disease Respiratory History: Denies: Hx Asthma, Hx Chronic Obstructive Pulmonary Disease (COPD) GI History: Reports: Hx Hiatal Hernia, Hx Ulcer - GASTRIC, Other GI Disorders - DIVERTICULOSIS History: Denies: Hx Renal Disease Musculoskeletal History: Reports: Hx Arthritis, Hx Bursitis - LEFT SHOULDER, Other Musculoskeletal History - LEFT SHOULDER Sensory History: Reports: Hx Contacts or Glasses - GLASSES Denies: Hx Hearing Aid Opthamlomology History: Reports: Hx Contacts or Glasses - GLASSES Neurological History: Reports: Hx Headaches - MIGRAINES, Hx Migraine Psychiatric History: Denies: Hx Panic Disorder - Surgical History Surgery Procedure, Year, and Place: LOWER BACK FUSION 1991. RIGHT KNEE SURGERY LATERAL RELEASE 2008. LEFT SHOULDER ROTATOR CUFF 2009. RECONSTRUCTIVE ACL SURGERY LEFT KNEE 2011. LEFT SHOULDER IMPINGEMENT REPAIR 2014. CARPAL TUNNEL RIGHT HAND 02/2017 Hx Anesthesia Reactions: No Infectious Disease History: No Infectious Disease History: Denies: Traveled Outside the [place] in Last 30 Days - Family History Known Family History: Positive: Cardiac Disease - FMHx of [place] in 40s , Hypertension - Social History Alcohol Use: Occasionally Alcohol Amount: 2-3 DRINKS A MONTH Substance Use Type: Reports: None Smoking Status (MU): Never Smoked Tobacco Have You Smoked in the Last Year: No Review of Systems Negative: Chest Pain Negative: Shortness Of Breath Positive: Other - Right leg pain; right leg swelling All Other Systems Reviewed And Are Negative: Yes Physical Exam - Summary Physical Exam Summary: VITAL SIGNS: Reviewed. GENERAL: Patient is a well-developed and nourished female who is lying comfortable in the stretcher. Patient is not in any acute respiratory distress. HEAD AND FACE: No signs of trauma. No ecchymosis, hematomas or skull depressions. No sinus tenderness. EYES: PERRLA, EOMI x 2, No injected conjunctiva, no nystagmus. EARS: Hearing grossly intact. Ear canals and tympanic membranes are within normal limits. MOUTH: Oropharynx within normal limits. NECK: Supple, trachea is midline, no adenopathy, no JVD, no carotid bruit, no c- spine tenderness, neck with full ROM. CHEST: Symmetric, no tenderness at palpation. LUNGS: Clear to auscultation bilaterally. No wheezing or crackles. CVS: Regular rate and rhythm, S1 and S2 present, no murmurs or gallops appreciated. ABDOMEN: Soft, non-tender. No signs of distention. No rebound, no guarding, and no masses palpated. Bowel sounds are normal. EXTREMITIES: FROM in all major joints, slightly increased diameter of right calf at 39.8 cm. NEURO: Alert and oriented x 3. No acute neurological deficits. Speech is normal and follows commands. SKIN: Dry and warm. Triage Information Reviewed: Yes Vital Signs On Initial Exam: Initial Vitals Temp Pulse Resp BP Pulse Ox 99.0 F 87 16 141/99 97 06/25/19 09:13 06/25/19 09:13 06/25/19 09:13 06/25/19 09:13 06/25/19 09:13 Vital Signs Reviewed: Yes Procedures - Sedation Patient Received Moderate/Deep Sedation with Procedure: No Diagnostics - Vital Signs Vital Signs Temp Pulse Resp BP Pulse Ox 06/25/19 09:13 99.0 F 87 16 141/99 97 - Laboratory Result Diagrams: 06/25/19 10:01 06/25/19 10:01 Lab Statement: Any lab studies that have been ordered have been reviewed, and results considered in the medical decision making process. - Ultrasound Venous Doppler Ultrasound Interpretation Completed By: Radiologist Summary of Ultrasound Findings: No evidence for RIGHT lower extremity deep venous thrombosis. ED physician has reviewed this report. Lower Extremity Course/Dx - Course Assessment/Plan: 48 year old F presenting to [facility] with a chief complaint of right leg pain and swelling since 5 days ago. The patient rates the pain 1/10 in severity. Symptoms aggravated by nothing. Symptoms alleviated by nothing. Patient reports that her swelling began in her ankle and radiated upwards to her knee. Patient denies any shortness of breath, chest pain, or other symptoms. She states that her physician has said that the patient may need to see a vascular physician. She has a history of multiple orthopedic surgeries. She admits to occasional alcohol use. Medication list reviewed. Allergy list reviewed. Blood work without a significant abnormality. Right lower extremity ultrasound IMPRESSION: No evidence for RIGHT lower eI discussed all the findings and test results with the patient. Patient was instructed to return to the emergency room immediately if any of the symptoms return or worsen. Plan of care was discussed with the patient and she understands and agrees. All questions were answered at patient satisfaction. There were no further complaints or concerns. Lung exam before discharge: CTA B/L. Good air exchange. No wheezing or crackles heard. CVS: S1 and S2 present. No murmurs appreciated. Patient is alert and oriented x 3. Patient is hemodynamically stable. Patient will be discharged home with follow up PCP in the next 2-3 days, extremity deep venous thrombosis. - Diagnoses Differential Diagnosis/HQI/PQRI: Positive: Cellulitis, Contusion, DVT, Infection , Sprain, Strain Provider Diagnoses: Calf pain Discharge ED - Sign-Out/Discharge Documenting (check all that apply): Patient Departure - Discharge Plan Condition: Stable Disposition: HOME Patient Education Materials: Musculoskeletal Pain (ED) Referrals: Jackeline Pedraza MD [Primary Care Provider] - 3 Days Additional Instructions: Follow up with your primary care provider within 3 days for calf pain noted today. Return to the emergency department for any worsening or new symptoms. - Billing Disposition and Condition Condition: STABLE Disposition: Home - Attestation Statements Document Initiated by Robynibe: Yes Documenting Scribe: Denise Crespo Provider For Whom Scribe is Documenting (Include Credential): Joey Stanley MD Scribe Attestation: Denise Erickson scribed for Joey Stanley MD on 06/26/19 at 1135. Scribe Documentation Reviewed: Yes Provider Attestation: The documentation as recorded by the Denise ying accurately reflects the service I personally performed and the decisions made by Joey storm MD Status of Scribe Document: Viewed
[2019-06-25 10:17] LABS: ABS Basophils 0.1 10^3/ul (0-0.2); ABS Eosinophils 0.1 10^3/ul (0-0.6); ABS Lymphocytes 1.5 10^3/ul (1.0-4.8); ABS Monocytes 0.5 10^3/ul (0-0.8); ABS Neutrophils 4.1 10^3/ul (1.5-7.7); Eosinophil % 1.3 %; Hematocrit 39 % (35-47); Hemoglobin 13.2 g/dL (12.0-16.0); Lymphocyte % 24.1 %; Mean Corpuscular HGB Conc 34 g/dL (31-36); Mean Corpuscular Hemoglobin 31 pg (27-31); Mean Corpuscular Volume 92 fL (80-97); Mean Platelet Volume 10.1 fL (7.4-10.4); Platelet Count 205 10^3/uL (150-450); Red Blood Count 4.25 10^6 /uL (3.70-4.87); Red Cell Distribution Width 14 % (10-15); White Blood Count 6.2 10^3/uL (3.5-10.8)
[2019-06-25 10:36] LABS: Albumin 3.8 g/dL (3.2-5.2); Albumin/Globulin Ratio 1.5 (1-3); BUN/Creatinine Ratio 19.1 (8-20); C Reactive Protein 2.5 mg/L (<8.01); Calcium 8.7 mg/dL (8.6-10.3); EGFR African American 82.3 (>60); Globulin 2.6 g/dL (2-4); Potassium 3.8 mmol/L (3.5-5.0); Total Bilirubin 0.5 mg/dL (0.2-1.0); Total Protein 6.4 g/dL (6.4-8.9)
[2019-06-25 12:15] VITALS: BP 128/92
== END 2019-06-25 12:14 | disposition home or self-care (01) ==
LOC: ED 09:03
DX: M79.661 Pain in right lower leg (principal); M79.89 Other specified soft tissue disorders; I10 Essential (primary) hypertension; Z79.899 Other long term (current) drug therapy; Z88.6 Allergy status to analgesic agent; Z88.5 Allergy status to narcotic agent; Z91.018 Allergy to other foods; Z91.010 Allergy to peanuts; Z91.048 Other nonmedicinal substance allergy status
CPT/HCPCS: 36415; 80053; 85025; 86140; 99282